=== PATIENT | male | born 1960 | race Caucasian/White ===

== ENCOUNTER 2021-12-18 16:51 | Observation (INO) | payer MEDICAID ==
[2021-12-18] MEDS ORDERED: Lactated Ringers 1,000 ML IV ONE (17:13)
[2021-12-18 18:17] LABS: PTT,PARTIAL THROMBOPLSTIN TIME 25.7 SEC (20.5-30.9)
[2021-12-18 18:32] LABS: CHLORIDE,CL 104 mmol/L (98-107); SODIUM,NA 144 mmol/L (136-145)
[2021-12-18 18:40] LABS: ANION GAP 14.1 mmol/L (5-15); ESTIMATED GFR 98 mL/min (>=60)
[2021-12-18] MEDS ORDERED: Acetaminophen 650 MG Supp RECTAL PRN (21:21)
[2021-12-19] MEDS ORDERED: DEXAMETHASONE 6 MG PO SCH (09:30)
[2021-12-19] MEDS ORDERED: GUAIFENESIN 400 MG PO SCH (09:30)
[2021-12-19] MEDS ORDERED: Non-Formulary Medication 1 Each (Memantine Hcl/Donepezil Hcl [Namzaric 28 Mg-10 Mg Capsule SCH (09:30)
[2021-12-19] MEDS ORDERED: Bisacodyl 5 MG Tab PO SCH (09:30)
[2021-12-19] MEDS ORDERED: Levothyroxine 125 MCG Tab PO SCH (09:30)
[2021-12-19] MEDS ORDERED: Non-Formulary Medication 1 Each (Meloxicam [Meloxicam] 15 MG Tablet) PO SCH (09:30)
[2021-12-19] MEDS ORDERED: Non-Formulary Medication 1 Each (Magnesium Oxide [Magnesium] 400 MG Tablet) PO SCH (09:30)
[2021-12-19] MEDS ORDERED: Melatonin 3 MG Tab PO SCH (09:30)
[2021-12-19] MEDS ORDERED: guaiFENesin 600 MG Tab.ER PO SCH (11:00)
[2021-12-19] MEDS ORDERED: Meloxicam 7.5 MG Tab PO SCH (11:00)
[2021-12-19] MEDS ORDERED: Magnesium Oxide 400 MG Tab PO SCH (11:00)
[2021-12-19] MEDS ORDERED: Dexamethasone 2 MG Tab PO SCH (11:00)
[2021-12-19] MEDS ORDERED: Dexamethasone 4 MG Tab PO SCH (11:30)
== END 2021-12-19 21:30 | disposition home health service (06) ==
LOC: VM.ED 16:51 → VM.MS 21:21
PROVIDERS: ADMIT Physician Assistant; ATTEND Physician Assistant
DX: U07.1 COVID-19 (principal); R13.10 Dysphagia, unspecified; Z88.8 Allergy status to other drugs, medicaments and biological substances; F10.26 Alcohol dependence with alcohol-induced persisting amnestic disorder; Z79.899 Other long term (current) drug therapy
CPT/HCPCS: 36415; 80053; 82550; 83605; 83615; 83735; 83880; 84100; 84145; 84484; 85025; 85379; 85610; 85730; 86140; 87040; 93005; 96360; 96361; 99285; A9270; J7120; J8540; G0378